=== PATIENT | female | born 2005 | race African-American/Black ===

== ENCOUNTER 2023-11-10 01:24 | Emergency (ER) | payer OTHER, SELFPAY ==
[2023-11-10 03:23] LABS: Influenza A by NAA Not Detected (NotDetected); Influenza B by NAA Not Detected (NotDetected); SARS-CoV-2 NAA Rapid Test Not Detected (NotDetected)
== END 2023-11-10 04:27 | disposition home or self-care (01) ==
LOC: CSHERS 01:24
DX: J06.9 Acute upper respiratory infection, unspecified (principal); F17.290 Nicotine dependence, other tobacco product, uncomplicated
CPT/HCPCS: 87081; 87430; 99283